=== PATIENT | female | born 1950 | race Hispanic/Latino ===

== ENCOUNTER → 2017-07-10 | Outpatient (CLI) | payer OTHER | END | disposition home or self-care (01) | LOC: RAH 12:42 | PROVIDERS: ATTEND Internal Medicine Cardiovascular Disease | DX: Z13.6 Encounter for screening for cardiovascular disorders (principal) | CPT/HCPCS: 75571 ==

== ENCOUNTER → 2018-04-10 | Outpatient (CLI) | payer OTHER ==
[~2018-04-10] MED LIST: IOHEXOL-350 50ML VIAL IV ONE
== END | disposition home or self-care (01) ==
LOC: RAH 09:38
PROVIDERS: ATTEND Internal Medicine Cardiovascular Disease
DX: I70.0 Atherosclerosis of aorta (principal); I73.9 Peripheral vascular disease, unspecified
CPT/HCPCS: 75635; Q9967

== ENCOUNTER 2018-07-24 08:03 | Observation (INO) | payer OTHER ==
[2018-07-20 12:30] VITALS: BP 119/63
[~2018-07-24] VITALS: Ht 165.1 cm; Wt 48.3 kg
[2018-07-24 08:00] VITALS: BP 149/68
[~2018-07-24 08:03] MED LIST changes: +ACET-66 PO; +ASCO500T9 PO; +ASPI-1026 PO; +ATOR40TA69 PO; +CETI10TA57 PO; +CLON1TAB12 PO; +CLON1TAB23 PO; +COLLAGEN PO; +CYCL10TA7 PO; +DIPH25CA85 PO; +GLUC1TAB21 PO; -IOHEXOL-350 50ML VIAL IV ONE; +LOSA1TAB42 PO; +METF-444 PO; +MULT-1192 PO; +NAPR-1192 PO; +PANT40TA PO; +SULF500T8 PO; +TRAM50TA4 PO; +VENL-62 PO; +VITA1TAB22 PO; +VITA400C70 PO; +VITAMIN C PO; +VITAMIN PO; +[UNRECOGNIZED DRUG - OTHER] PO
[2018-07-24] MEDS ORDERED: SODIUM CHLORIDE 0.9% 1000ML 1,000 ML IV ONE (08:28)
[2018-07-24] MEDS ORDERED: METHYLPREDNISOLONE SOD SUCC 125MG/2ML VIAL ONE (10:44)
[2018-07-24] MEDS ORDERED: MEPERIDINE-PF 25 MG/ML SYG ONE ×3 (10:52→11:31)
[2018-07-24] MEDS ORDERED: MIDAZOLAM HCL 1 MG/ML 2ML VIAL ONE ×3 (10:52→11:31)
[2018-07-24] MEDS ORDERED: LIDOCAINE HCL 1% MDV 50ML VIAL ONE (10:53)
[2018-07-24] MEDS ORDERED: BUPIVACAINE/PF 0.25% 10ML VIAL IJ ONE (10:53)
[2018-07-24] MEDS ORDERED: VANCOMYCIN 1GM+NS 250ML 500 ML IV ONE (11:06)
[2018-07-24] MEDS ORDERED: IOHEXOL-350 50ML VIAL IV ONE (11:15)
[2018-07-24] MEDS ORDERED: THROMBIN-JMI 5000 UNIT/VIAL TP ONE (12:18)
[2018-07-24] MEDS ORDERED: OCTYL 2-CYANOACRYLATE 1 EACH TP ONE (12:30)
[2018-07-24] MEDS ORDERED: ONDANSETRON HCL 4 MG/2 ML VIAL IV PRN (13:00)
[2018-07-24] MEDS ORDERED: ACETAMINOPHEN 325 MG TAB PO PRN ×3 (13:00→17:30)
[2018-07-24] MEDS ORDERED: ACETAMINOPHEN 1000 MG PO SCH (13:00)
[2018-07-24] MEDS ORDERED: ACETAMINOPHEN 500 MG PO SCH (13:00)
[2018-07-24] MEDS ORDERED: ACETAMINOPHEN-CODEINE 300/30MG TAB PO PRN ×3 (13:00→17:30)
[2018-07-24] MEDS ORDERED: CLONAZEPAM 1 MG TABLET PO SCH (13:00)
[2018-07-24] MEDS ORDERED: CYCLOBENZAPRINE HCL 10 MG TABLET PO PRN (13:00)
[2018-07-24] MEDS ORDERED: TRAMADOL HCL 50 MG TABLET PO PRN ×2 (13:00)
[2018-07-24] MEDS ORDERED: NON-FORMULARY MEDICATION 1 EACH (Clonazepam 0.5 MG) PO SCH (13:00)
[2018-07-24] MEDS ORDERED: TEMAZEPAM 30 MG CAP PO PRN (13:00)
[2018-07-24 14:00] VITALS: BP 146/75
[2018-07-24 16:00] VITALS: BP 130/73
[2018-07-24] MEDS: INSULIN HUMULIN R 100 UNIT/ML 3ML SQ SCH ×2 (16:30→21:00)
[2018-07-24] MEDS: PHARMACY COMMUNICATION MISC SCH (18:24)
[2018-07-24] MEDS ORDERED: CLONAZEPAM 0.5 MG TABLET PO PRN (18:30)
[2018-07-24 19:33] VITALS: BP 139/75
[2018-07-24] MEDS: NAPROXEN 250 MG TAB PO SCH (21:48)
[2018-07-24] MEDS: SULFASALAZINE 500 MG TAB.DR PO SCH (21:48)
[2018-07-24] MEDS ORDERED: VANCOMYCIN 1GM+NS 250ML 250 ML IV SCH (23:00)
[2018-07-25 00:05] VITALS: BP 117/77
[2018-07-25] MEDS: PHARMACY COMMUNICATION MISC SCH ×3 (01:30→09:30)
--- NOTE | 2018-07-25 04:31 | NUR ---
Patient resting in bed. Sling to R arm. C/o pain to incision site. Medicated with proper pain medication. Bilateral radial pulses intact. Patient tolerated IV Vanco. Denies N/V/D, no rash or itching. Educated patient on R arm precautions.
[2018-07-25 04:32] VITALS: BP 119/67
--- NOTE | 2018-07-25 06:44 | NUR ---
PER DR TOTH PATIENT WAS SUPPOSED TO BE ADMITTED UNDER DR TOTH. ADMIT ORDERS CHANGED
[2018-07-25] MEDS: INSULIN HUMULIN R 100 UNIT/ML 3ML SQ SCH ×2 (06:49→11:30)
[2018-07-25 07:00] VITALS: BP 137/79
--- NOTE | 2018-07-25 08:45 | NUR ---
AM ASSESSMENT PT SITTING IN BED. FAMILY @ BEDSIDE. A/O X 3. NO SOB. NO DISTRESS NOTED. DENIES CHEST PAIN OR DISCOMFORT. DENIES INCISIONAL PAIN OR DISCOMFORT. TELE: SR 60s. RT UPPER CHEST PRESSURE DSG REMOVED. TELFA & OPSITE INTACT, NO DRAINAGE NOTED. NO BLEEDING, NO HEMATOMA NOTED. SLING TO RT ARM. ARM PRECAUTIONS REVIEWED & REINFORCED. STATES UNDERSTANDING. DENIES N/V AND/OR DIARRHEA. UP W/ASSISTANCE. INSTRUCTED TO CALL FOR ASSISTANCE. CALL NO W/IN REACH.
[2018-07-25] MEDS: NAPROXEN 250 MG TAB PO SCH (08:52)
[2018-07-25] MEDS: SULFASALAZINE 500 MG TAB.DR PO SCH (08:52)
[2018-07-25] MEDS ORDERED: ASPIRIN 325 MG TABLET PO SCH (09:00)
[2018-07-25] MEDS ORDERED: VITAMIN B COMPLEX 1 CAPSULE PO SCH (09:00)
[2018-07-25] MEDS ORDERED: METFORMIN HCL 500 MG TABLET PO SCH (09:00)
[2018-07-25] MEDS ORDERED: PANTOPRAZOLE SODIUM 40 MG TABLET.DR PO SCH (09:00)
[2018-07-25] MEDS ORDERED: ATORVASTATIN CALCIUM 40 MG TABLET PO SCH (09:00)
[2018-07-25] MEDS ORDERED: VITAMIN E 400 UNIT CAPSULE PO SCH (09:00)
[2018-07-25] MEDS ORDERED: CALCIUM 600 + VITAMIN D 400 TABLET PO SCH (09:00)
[2018-07-25] MEDS ORDERED: COLLAGEN PO SCH (09:00)
[2018-07-25] MEDS ORDERED: MULTIVITAMIN TABLET PO SCH (09:00)
[2018-07-25] MEDS ORDERED: CETIRIZINE HCL 5 MG TABLET PO SCH (09:00)
[2018-07-25] MEDS ORDERED: GLUCOSAMINE CHONDROITIN PO SCH (09:00)
[2018-07-25] MEDS ORDERED: ASCORBIC ACID 500 MG TAB PO SCH (09:00)
[2018-07-25] MEDS ORDERED: VITAMIN C PO SCH (09:00)
[2018-07-25] MEDS ORDERED: VENLAFAXINE HCL XR 37.5 MG CAP PO SCH (09:00)
[2018-07-25 11:00] VITALS: BP 127/72
--- NOTE | 2018-07-25 11:10 | NUR ---
DISCHARGE VERBAL & WRITTEN DISCHARGE INSTRUCTIONS REVIEWED & GIVEN TO PT & FAMILY. QUESTIONS ENCOURAGED & CLARIFIED. PROPER CARE & ACTIVITY AFTER PPM PLACEMENT REVIEWED. NEW PRESCRIBED MEDICATIONS REVIEWED. PRESCRIPTION GIVEN TO PT; SIGNED COPY PLACED IN CHART. F/U APPT INFO REVIEWED. IV DISCONTINUED. TELE AMARIS REMOVED. PT & FAMILY TO GATHER PERSONAL BELONGINGS. WILL NOTIFY STAFF WHEN READY TO BE TAKEN TO PRIVATE VEHICLE.
--- NOTE | 2018-07-25 12:00 | NUR ---
DISCHARGE PT TAKEN TO PRIVATE VEHICLE VIA WC BY MYSELF, Josh VALLADARES RN. SPOUSE AWAITING IN PRIVATE VEHICLE. TOLERATED WELL. NO DISTRESS NOTED.
== END 2018-07-25 12:00 | disposition home or self-care (01) ==
LOC: DAH 08:03 → DAHIP 08:04 → DAH 08:04 → 2AH 13:42
PROVIDERS: ADMIT Internal Medicine; ATTEND Internal Medicine
DX: I44.1 Atrioventricular block, second degree (principal); M06.9 Rheumatoid arthritis, unspecified; I49.5 Sick sinus syndrome; I10 Essential (primary) hypertension; E78.5 Hyperlipidemia, unspecified; Z95.0 Presence of cardiac pacemaker; I45.4 Nonspecific intraventricular block; Z85.3 Personal history of malignant neoplasm of breast; Z88.0 Allergy status to penicillin
CPT/HCPCS: 33208; 71046; 82948 ×5; 93005; 96365; 96366; C1785; C1894; C1898 ×2; G0378 ×28; J2175 ×2; J2250 ×2; J2930; J3370 ×2; J3490 ×3; J7030; Q9967; 99156; 99157

== ENCOUNTER → 2019-07-24 | Outpatient (CLI) | payer OTHER ==
[~2019-07-24] MED LIST changes: +ASCO500T20 PO; -ASCO500T9 PO; -DIPH25CA85 PO; -LOSA1TAB42 PO; +VITA-164 PO; -VITA400C70 PO
== END | disposition home or self-care (01) ==
LOC: SHCH 12:35
PROVIDERS: ATTEND Internal Medicine Cardiovascular Disease
DX: I10 Essential (primary) hypertension (principal)
CPT/HCPCS: 93306

== ENCOUNTER → 2019-07-29 | Outpatient (CLI) | payer OTHER | END | disposition home or self-care (01) | LOC: RAH 11:51 | PROVIDERS: ATTEND Internal Medicine | DX: R59.0 Localized enlarged lymph nodes (principal) | CPT/HCPCS: 76536; 76882 ==

== ENCOUNTER → 2024-03-25 | Outpatient (CLI) | payer OTHER ==
[~2024-03-25] MED LIST changes: +CYCL-309 PO; -CYCL10TA7 PO; -GLUC1TAB21 PO; +GLUC1TAB22 PO; -VITA-164 PO; +VITA-348 PO; +VITA-427 PO; -VITA1TAB22 PO
--- NOTE | 2024-03-27 08:26 | HMCSR ---
APPROVED REPORT EXAM: Two-dimensional and M-mode echocardiogram with Doppler and color Doppler. INDICATION ICD: R00.1 Bradycardia, unspecified 2D Dimensions RVDd4.4 cmLVEF(%)53.6 (>50%)LVED Vol(simp.)86.0 mL IVSd0.9 (0.7-1.1cm)FS(%)27 %LVES Vol(simp.)36.0 mL LVDd4.0 (3.8-5.6cm)Ao Root(2D)3.1 (2.0-3.7cm)LVEF(%, simp.)58 % PWd1.0 (0.7-1.1cm)LVOT diam2.1 (1.8-2.4cm)LA ESV INDEX (BP)24.39 mL/m2 LVDs2.9 (2.5-4.0cm)IVC diam1.0 cm Aortic Valve AoV Vmax1.5 m/Sosa Peak GR8.9 mmHgLVOT Vmax0.9 m/s AoV VTI0.3 mAo Mean GR5.6 mmHgLVOT VTI0.20 m JAROCHO (VMAX)2.2 cm2Al P1/2T618 msAVA (VTI) 2.2 cm2 Mitral Valve MV E Vmax68.5 cm/sDECEL Bbdi333 ms MV A Vmax99.5 cm/sP 1/2 T53 ms E/A ratio0.7MVA (PHT)4.1 cm2 MR Max PG97 mmHg TDI E/E' Uovdyw33.4E/E' Izvwusl12.2 Pulmonary Valve PV Vmax0.8 m/sPV VTI0.19 mPV Mean GR2 mmHg PV Peak GR2.5 mmHgPI End Arlette. Uli 0.7 cm/s Tricuspid Valve TR Vmax2.5 m/sRAP (EST) 3 ugVlFZVP77.5 mmHg TR Peak GR24.5 mmHg Left Ventricle Left ventricular cavity size is normal. Dyssynchronous wall motion. There is normal left ventricular wall thickness. LVEF is 50-55%. No left ventricle thrombus noted on this study. Grade 1 diastolic dys function Right Ventricle The right ventricle is mildly dilated. The right ventricular systolic function is normal. Atria The left atrium size is normal. The right atrium size is normal. Aortic Valve Aortic valve is trileaflet. Aortic valve leaflets are sclerotic but open well. Mild aortic regurgitat ion. There is no aortic valvular stenosis. Mitral Valve Mitral valve leaflets appear normal. Mitral regurgitation is mild. There is no mitral valve stenosis. Tricuspid Valve The tricuspid valve leaflets appear normal. There is mild tricuspid regurgitation. Pulmonic Valve The pulmonic valve leaflets are thin and pliable; valve motion is normal. There is trace to mild valv ular regurgitation. Great Vessels The aortic root is normal in size. The IVC is normal in size and collapses >50% with inspiration. Pericardium No pericardial effusion. Conclusion Left ventricular cavity size is normal. LVEF is 50-55%. Grade 1 diastolic dysfunction Dyssynchronous wall motion. The right ventricle is mildly dilated. The left atrium size is normal. Aortic valve is trileaflet. Aortic valve leaflets are sclerotic but open well. Mild aortic regurgitation. Mitral regurgitation is mild. There is mild tricuspid regurgitation. There is trace to mild valvular regurgitation. The aortic root is normal in size. The IVC is normal in size and collapses >50% with inspiration. No pericardial effusion.
== END | disposition home or self-care (01) ==
LOC: SHCH 13:25
PROVIDERS: ATTEND Internal Medicine Cardiovascular Disease
DX: I08.8 Other rheumatic multiple valve diseases (principal); R00.1 Bradycardia, unspecified
CPT/HCPCS: 93306

== ENCOUNTER → 2024-04-04 | Outpatient (CLI) | payer OTHER ==
--- NOTE | 2024-04-04 13:15 | HMCIMG ---
CT ABD/PEL WO CON RENAL/APPY REASON: CALCULUS OF KIDNEY COMPARISON: 04/10/2018 FINDINGS: Lung bases are clear. There are no focal liver lesions. There are normal-appearing kidneys.. Spleen and pancreas appear unremarkable. The gallbladder appears normal as well. There is a large amount of fecal material in the a sending and transverse colon which could represent constipation. Bowel loops appear otherwise unremarkable. This includes normal appearance of the appendix There is no evidence of free fluid or intraperitoneal air. There are no focal fluid collections. Aorta and retroperitoneum appear normal as do pelvic soft tissue structures. The anterior abdominal wall is intact. Osseous structures appear unremarkable. IMPRESSION: 1. No acute finding, no evidence of kidney or ureteral stones. 2. Probable constipation. CT was performed with one or more following dose reduction techniques: automated exposure control, adjustment of the mA and kv according to patient's size, or use of a iterative reconstruction technique.
== END | disposition home or self-care (01) ==
LOC: RAH 11:17
PROVIDERS: ATTEND Internal Medicine
DX: N20.0 Calculus of kidney (principal); N23 Unspecified renal colic
CPT/HCPCS: 74176